=== PATIENT | female | born 1940 | race American Indian/Alaskan Native ===

== ENCOUNTER 2017-08-12 09:38 | Emergency (ER) | payer MEDICARE ==
[2017-08-12 11:00] LABS: Alanine Aminotransferase 14 units/L (7-56); Albumin 4.1 g/dL (3.9-5); Albumin/Globulin Ratio 1.3 %; Alkaline Phosphatase 34 units/L (35-129); Anion Gap 17 mmol/L; BUN/Creatinine Ratio 15; Blood Urea Nitrogen 12 mg/dL (7-17); Calcium 9.5 mg/dL (8.4-10.2); Carbon Dioxide 30 mmol/L (22-30); Chloride 98.2 mmol/L (98-107); Glucose 148 mg/dL (65-100); Potassium 3.3 mmol/L (3.6-5.0); Sodium 142 mmol/L (137-145); Total Protein 7.2 g/dL (6.3-8.2)
[2017-08-12 11:54] LABS: Eosinophils % (Auto) 0.5 % (0.0-4.3); Hematocrit 36.1 % (30.3-42.9); Hemoglobin 11.9 gm/dl (10.1-14.3); Mean Corpuscular HGB Conc 33 % (30-34); Mean Corpuscular Hemoglobin 31 pg (28-32); Mean Corpuscular Volume 95 fl (79-97); Platelet Count 198 K/mm3 (140-440); Red Blood Count 3.79 M/mm3 (3.65-5.03); White Blood Count 4.1 K/mm3 (4.5-11.0)
--- NOTE | 2017-08-12 12:31 | Emergency Department Report ---
ED Syncope HPI - General Chief Complaint: Nausea/Vomiting/Diarrhea Stated Complaint: NAUSEA VOMITING Time Seen by Provider: 08/12/17 12:02 Source: patient Exam Limitations: no limitations - History of Present Illness Initial Comments: 76 year-old female with a past medical history hypertension and dementia presents to the Hospital clinic of near syncopal episode associated nausea vomiting team. Patient was standing, felt lightheaded, and within 5 minutes had multiple episodes of nausea vomiting. Patient denies hematemesis. She states she suffers from intermittent diarrhea with no acute change. Patient denies headache, chest pain, shortness of breath, abdominal pain, dysuria, or fever. Accu-Chek 160 WATER [employer]AXI [employer] and patient given Zofran 4 mg prior to arrival. Family initially wanted to sign patient out AMA due 2.5 hour wait to be seen but agreed to stay to be evaluated. They prefer patient to be transferred to a [facility] - Related Data Allergies/Adverse Reactions: Allergies No Known Allergies Allergy (Unverified 08/12/17 10:03) ED Review of Systems ROS: Stated complaint: NAUSEA VOMITING Other details as noted in HPI Comment: All other systems reviewed and negative Other: Constitutional: No fevers chills Eyes: No eye pain visual changes ENT: No ear pain or throat pain Neck: Denies pain Respiratory: Denies cough wheezing shortness of breath Cardiovascular: Denies chest pain, palpitations GI: Denies abdominal pain : Denies dysuria Musculoskeletal: Denies back pain Skin: Denies rash, lesions, erythema Neurologic: Denies headache, numbness, weakness Psychiatric: Denies suicidal ideation, hallucinations ED Past Medical Hx - Past Medical History Previous Medical History?: Yes Hx Hypertension: Yes Additional medical history: Dementia - Surgical History Past Surgical History?: No - Social History Smoking Status: Current Every Day Smoker Substance Use Type: None ED Physical Exam - General Limitations: No Limitations ED Course Vital Signs 08/12/17 08/12/17 08/12/17 10:21 11:40 12:29 Temperature 97.6 F Pulse Rate 57 L 53 L Blood Pressure 147/68 127/54 [Left] O2 Sat by Pulse 98 Oximetry - Reevaluation(s) Reevaluation #1: 08/12/17 12:33 pt is asymptomatic, feels better after NS 1 L, zofran 4 - Consultations Consultation #1: 08/12/17 12:[address] Ernst at [facility] pending call back regarding facility 08/12/17 14:49 After initial except as I received a call back that patient was not accepted by the hospitalist who suggested that the patient did not require admission and that we need to perform orthostatics, chest x-ray, and UA. I called back at this time with the normal additional results. I informed him that I preferred to admit patient for observation and was suggested patient be kept here. I explained to the family prefers patient to be admitted to a [facility] and therefore they have once again re-accepted patient with plan to transfer to [facility] Medical Decision Making - Lab Data Result diagrams: 08/12/17 10:20 08/12/17 10:20 Lab Results 08/12/17 08/12/17 08/12/17 Range/Units 10:20 10:20 10:20 WBC 4.1 L (4.5-11.0) K/mm3 RBC 3.79 (3.65-5.03) M/mm3 Hgb 11.9 (10.1-14.3) gm/dl Hct 36.1 (30.3-42.9) % MCV 95 (79-97) fl MCH 31 (28-32) pg MCHC 33 (30-34) % RDW 15.0 (13.2-15.2) % Plt Count 198 (140-440) K/mm3 Lymph % (Auto) 33.2 (13.4-35.0) % [place] % (Auto) 4.9 (0.0-7.3) % Eos % (Auto) 0.5 (0.0-4.3) % Baso % (Auto) 1.0 (0.0-1.8) % Lymph # 1.4 (1.2-5.4) K/mm3 [place] # 0.2 (0.0-0.8) K/mm3 Eos # 0.0 (0.0-0.4) K/mm3 Baso # 0.0 (0.0-0.1) K/mm3 Seg Neutrophils % 60.4 (40.0-70.0) % Seg Neutrophils # 2.5 (1.8-7.7) K/mm3 Sodium 142 (137-145) mmol/L Potassium 3.3 L (3.6-5.0) mmol/L Chloride 98.2 (98-107) mmol/L Carbon Dioxide 30 (22-30) mmol/L Anion Gap 17 mmol/L BUN 12 (7-17) mg/dL Creatinine 0.8 (0.7-1.2) mg/dL Estimated GFR > 60 ml/min BUN/Creatinine Ratio 15 % Glucose 148 H (65-100) mg/dL Calcium 9.5 (8.4-10.2) mg/dL Total Bilirubin 0.30 (0.1-1.2) mg/dL AST 24 (5-40) units/L ALT 14 (7-56) units/L Alkaline Phosphatase 34 L (35-129) units/L Troponin T < 0.010 (0.00-0.029) ng/mL Total Protein 7.2 (6.3-8.2) g/dL Albumin 4.1 (3.9-5) g/dL Albumin/Globulin Ratio 1.3 % Lipase (13-60) units/L //17 Range/Units 10:20 WBC (4.5-11.0) K/mm3 RBC (3.65-5.03) M/mm3 Hgb (10.1-14.3) gm/dl Hct (30.3-42.9) % MCV (79-97) fl MCH (28-32) pg MCHC (30-34) % RDW (13.2-15.2) % Plt Count (140-440) K/mm3 Lymph % (Auto) (13.4-35.0) % [place] % (Auto) (0.0-7.3) % Eos % (Auto) (0.0-4.3) % Baso % (Auto) (0.0-1.8) % Lymph # (1.2-5.4) K/mm3 [place] # (0.0-0.8) K/mm3 Eos # (0.0-0.4) K/mm3 Baso # (0.0-0.1) K/mm3 Seg Neutrophils % (40.0-70.0) % Seg Neutrophils # (1.8-7.7) K/mm3 Sodium (137-145) mmol/L Potassium (3.6-5.0) mmol/L Chloride (98-107) mmol/L Carbon Dioxide (22-30) mmol/L Anion Gap mmol/L BUN (7-17) mg/dL Creatinine (0.7-1.2) mg/dL Estimated GFR ml/min BUN/Creatinine Ratio % Glucose (65-100) mg/dL Calcium (8.4-10.2) mg/dL Total Bilirubin (0.1-1.2) mg/dL AST (5-40) units/L ALT (7-56) units/L Alkaline Phosphatase (35-129) units/L Troponin T (0.00-0.029) ng/mL Total Protein (6.3-8.2) g/dL Albumin (3.9-5) g/dL Albumin/Globulin Ratio % Lipase 35 (13-60) units/L - EKG Data -: EKG Interpreted by Me (nsr ) EKG shows normal: sinus rhythm, axis (qrs -37), QRS complexes (qrs 118), ST-T waves (no stemi, t inv) Rate: bradycardia (57) - Radiology Data Radiology results: report reviewed (chest x-ray: No acute findings) - Differential Diagnosis syncope, near syncopal , arrhythmia, anemia, vasovagal, CA Critical Care Time: No Critical care attestation.: If time is entered above; I have spent that time in minutes in the direct care of this critically ill patient, excluding procedure time. ED Disposition Clinical Impression: Near syncope, Vomiting Disposition: DC/TX-70 ANOTHER TYPE HLTHCARE Is pt being admited?: No Condition: Stable Time of Disposition: 14:48 (Dr Lew/[facility])
--- NOTE | 2017-08-12 13:30 | XRay Report ---
Single view chest: History: Near syncope. Findings: Normal cardiomediastinal silhouette. Trachea is midline. No consolidation, pneumothorax or pleural effusion. Impression: No acute cardiopulmonary findings.
[2017-08-12 14:32] LABS: Bilirubin,Urine NEG (Negative); Blood,Urine NEG (Negative); Ketones,Urine NEG (Negative); Leukocyte Esterase,Urine NEG (Negative); Mucus,Urine FEW /HPF; Nitrite,Urine NEG (Negative); Protein,Urine <15 mg/dL mg/dL (Negative); Urobilinogen,Urine < 2.0 mg/dL (<2.0)
[2017-08-12] MEDS ORDERED: K-DUR PO ONE (15:27)
[2017-08-12 17:01] VITALS: BP 133/63
== END 2017-08-12 17:01 | disposition other institution (70) ==
LOC: ED 09:38
DX: R55 Syncope and collapse (principal); R11.2 Nausea with vomiting, unspecified; I10 Essential (primary) hypertension; F03.90 Unspecified dementia, unspecified severity, without behavioral disturbance, psychotic disturbance, mood disturbance, and anxiety
CPT/HCPCS: 36415; 71010; 80053; 81001; 83690; 84484; 85025; 93005; 93010

== ENCOUNTER 2018-05-26 17:45 | Emergency (ER) | payer MEDICARE ==
--- NOTE | 2018-05-26 18:58 | Emergency Department Report ---
HPI - General Chief Complaint: Weakness Time Seen by Provider: 05/26/18 18:17 - HPI HPI: This is a 77-year-old female presents to the emergency department with complaint of some generalized dizziness and/or weakness that occurred a few hours after getting a iron transfusion for anemia. The patient went to a [facility] facility for a scheduled transfusion today. The last hemoglobin available for review appeared to be in mid April and was 8.6 at that time. There are also some blood work that show low iron count. After transfusion the patient developed some swelling in the left hand and the above- mentioned symptoms. She called [facility] and was told to go to the emergency department. She has a past medical history as well of some hypertension and early dementia. Currently the patient has no complaints. ED Past Medical Hx - Past Medical History Previous Medical History?: Yes Hx Hypertension: Yes Hx CVA: No Hx Heart Attack/AMI: No Hx Congestive Heart Failure: No Hx Diabetes: No Hx Deep Vein Thrombosis: No Hx Pulmonary Embolism: No Hx GERD: No Hx Liver Disease: No Hx of Cancer: No Hx Sickle Cell Disease: No Hx Arthritis: No Hx Headaches / Migraines: No Hx Seizures: No Hx Kidney Stones: No Hx Psychiatric Treatment: Yes (dementia) Hx Asthma: No Hx COPD: No Hx Tuberculosis: No Hx Dementia: No Hx HIV: No Additional medical history: Dementia - Surgical History Past Surgical History?: No Hx Coronary Stent: No Hx Open Heart Surgery: No Hx Pacemaker: No Hx Internal Defibrillator: No Hx Cholecystectomy: No Hx Appendectomy: No Hx Breast Surgery: No - Social History Smoking Status: Never Smoker Substance Use Type: None ED Review of Systems ROS: Stated complaint: WEAKNESS Other details as noted in HPI Comment: All other systems reviewed and negative Constitutional: weakness. denies: chills, fever Eyes: denies: eye pain, eye discharge, vision change ENT: denies: ear pain, throat pain Respiratory: denies: cough, shortness of breath, wheezing Cardiovascular: edema (left hand swelling). denies: chest pain, palpitations Gastrointestinal: denies: abdominal pain, nausea, diarrhea Genitourinary: denies: urgency, dysuria, discharge Musculoskeletal: denies: back pain, joint swelling, arthralgia Skin: denies: rash, lesions Neurological: other (dizziness). denies: headache Physical Exam - Physical Exam Vital Signs: Vital Signs 05/26/18 05/26/18 18:04 18:53 Temperature 97.5 F L Pulse Rate 49 L Respiratory 18 18 Rate Blood Pressure 136/61 Blood Pressure 136/61 [Right] O2 Sat by Pulse 99 98 Oximetry Physical Exam: GENERAL: The patient is well-developed well-nourished. HENT: Normocephalic. Atraumatic. Patient has moist mucous membranes. EYES: Extraocular motions are intact. Pupils equal reactive to light bilaterally. NECK: Supple. Trachea is midline. CHEST/LUNGS: Clear to auscultation. There is no respiratory distress noted. HEART/CARDIOVASCULAR: Regular. There is no tachycardia. There is no murmur. ABDOMEN: Abdomen is soft, nontender. Patient has normal bowel sounds. There is no abdominal distention. SKIN: Skin is warm and dry. There is some very mild swelling of the dorsal left hand. No skin color changes, rash or lesions. NEURO: The patient is awake, alert. The patient is cooperative. The patient has no focal neurologic deficits. The patient has normal speech. Cranial nerves II through XII grossly intact. MUSCULOSKELETAL: There is no tenderness or deformity. There is no limitation range of motion. There is no evidence of acute injury. Radial pulse +2 over 4 and Cap Refill less than 2 seconds to the affected left hand/wrist. ED Course Vital Signs 05/26/18 05/26/18 18:04 18:53 Temperature 97.5 F L Pulse Rate 49 L Respiratory 18 18 Rate Blood Pressure 136/61 Blood Pressure 136/61 [Right] O2 Sat by Pulse 99 98 Oximetry ED Medical Decision Making - Lab Data Result diagrams: 05/26/18 18:54 05/26/18 18:54 - EKG Data -: EKG Interpreted by Nj EKG shows normal: sinus rhythm, axis, intervals, QRS complexes, ST-T waves Rate: bradycardia (48 bpm) - EKG Data When compared to previous EKG there are: previous EKG unavailable Interpretation: other (sinus bradycardia) - Medical Decision Making Patient presented to the emergency department after she had some dizziness and/ or generalized weakness after having a iron transfusion earlier today for her iron deficiency anemia. By the time the patient is in the emergency department she is feeling improved. EKG did not show any signs of ST elevation LA, ischemia or dysrhythmia. It did show some bradycardia with heart rate of 48. The patient's heart rate seems to go from the high 40s to the high 50s. She has no complaints of any chest pain, shortness of breath, headache. The patient is awake and alert and has no complaints and does not appear in any acute distress. Labs show some anemia with hemoglobin of 8.8. The rest of the labs are mostly unremarkable. The patient was ambulatory in the emergency department and did not appear unstable doing so. She appears safe for discharge home. However prior to discharge I did call and talk with [facility] and the patient has been set up for a follow-up appointment with her primary care physician tomorrow at 12:40 PM. She will return to the ER for any worsening of her symptoms or any acute distress. - Differential Diagnosis symptomatic anemia, hypothyroidism, dysrhythmia, electrolyte abnormalities Critical Care Time: No Critical care attestation.: If time is entered above; I have spent that time in minutes in the direct care of this critically ill patient, excluding procedure time. ED Disposition Clinical Impression: Dizziness, Bradycardia Anemia Qualifiers: Anemia type: iron deficiency Iron deficiency anemia type: unspecified iron deficiency Qualified Code(s): D50.9 - Iron deficiency anemia, unspecified Disposition: DC-01 TO HOME OR SELFCARE Is pt being admited?: No Condition: Stable Instructions: Iron Deficiency Anemia (ED), Weakness (ED), Dizziness (ED) Additional Instructions: Please follow up with the primary care physician tomorrow at 12:40 PM at the [facility] as scheduled for you. Please call the number listed if you need to cancel or change her appointment. Return to the emergency Department with any worsening of your symptoms or any acute distress. Referrals: Dr Josh [Other] - 05/27/18 12:40 pm (Call [phone] to cancel or change appointment) Forms: Accompanied Note Time of Disposition: 21:44
[2018-05-26 19:05] LABS: Hematocrit 28.1 % (30.3-42.9); Hemoglobin 8.8 gm/dl (10.1-14.3); Mean Corpuscular HGB Conc 31 % (30-34); Mean Corpuscular Volume 76 fl (79-97); Platelet Count 198 K/mm3 (140-440); Red Blood Count 3.72 M/mm3 (3.65-5.03)
[2018-05-26 19:06] LABS: Mean Corpuscular Hemoglobin 24 pg (28-32); Red Cell Distribution Width 23.4 % (13.2-15.2)
[2018-05-26 19:23] LABS: Alanine Aminotransferase 9 units/L (7-56); Albumin 3.8 g/dL (3.9-5); BUN/Creatinine Ratio 16; Blood Urea Nitrogen 13 mg/dL (7-17); Calcium 8.8 mg/dL (8.4-10.2); Hemolysis Index 12
[2018-05-26 20:12] LABS: Amphetamine Screen,Urine PRESUMPTIVE NEGATIVE; Benzodiazepines Screen,Urine PRESUMPTIVE NEGATIVE; Bilirubin,Urine NEG (Negative); Blood,Urine NEG (Negative); Cannabinoid Screen,Urine PRESUMPTIVE NEGATIVE; Cocaine Screen,Urine PRESUMPTIVE NEGATIVE; Color,Urine Yellow (Yellow); Methadone Screen,Urine PRESUMPTIVE NEGATIVE; Opiate Screen,Urine PRESUMPTIVE NEGATIVE; Protein,Urine <15 mg/dL mg/dL (Negative); Urobilinogen,Urine < 2.0 mg/dL (<2.0)
[2018-05-26 20:20] LABS: Total Cells Counted 100
[2018-05-26 20:21] LABS: Anisocytosis 1+; Basophils % (Manual) 0 % (0.0-1.8); Eosinophils % (Manual) 0 % (0.0-4.3); Hypochromasia 1+; Platelet Estimate Consistent w Auto; Poikilocytosis 1+
[2018-05-26 22:02] VITALS: BP 123/69
== END 2018-05-26 22:02 | disposition home or self-care (01) ==
LOC: ED 17:45
DX: D50.9 Iron deficiency anemia, unspecified (principal); R42 Dizziness and giddiness; R00.1 Bradycardia, unspecified; I10 Essential (primary) hypertension; F03.90 Unspecified dementia, unspecified severity, without behavioral disturbance, psychotic disturbance, mood disturbance, and anxiety; Z79.899 Other long term (current) drug therapy
CPT/HCPCS: 36415; 80053; 80307; 81001; 82962; 84443; 84484; 85007; 85025; 93005; 93010; 99284; G0480; 80320